=== PATIENT | female | born 1995 | race Caucasian/White ===

== ENCOUNTER 2019-09-10 22:47 | Observation (INO) ==
[2019-09-10] MEDS: D5% in 0.45% NACL 1,000 ML IVC SCH (23:18)
[2019-09-10] MEDS ORDERED: Metoclopramide 10 MG/2 ML VIAL IVP ONE (23:21)
[2019-09-10 23:39] LABS: Basophils # 0.1 K/mcL (0.0-0.2); Basophils % 0.6 %; Eosinophils # 0.1 K/mcL (0.0-0.6); Eosinophils % 0.7 %; Hematocrit 41.7 % (35.3-44.9); Hemoglobin 14.8 g/dL (11.5-15.4); Immature Granulocytes % 0.4 % (0-4); Lymphocytes # 1.7 K/mcL (0.6-4.6); Lymphocytes % 15.3 %; Mean Corpuscular HGB Conc 35.5 g/dL (31.6-35.5); Mean Corpuscular Hemoglobin 30.3 pg (28.0-33.3); Mean Corpuscular Volume 85.3 fL (83.0-100.0); Mean Platelet Volume 8.8 fL (9.4-12.4); Monocytes # 0.7 K/mcL (0.0-1.3); Monocytes % 6.5 %; Neutrophils # 8.2 K/mcL (1.6-8.9); Platelet Count 323 K/mcL (140-400); Red Blood Count 4.89 M/mcL (3.82-4.97); Red Cell Distribution Width 12.1 % (11.5-14.5); Segmented Neutrophils % 76.5 %; White Blood Count 10.8 K/mcL (4.3-11.1)
[2019-09-10 23:48] LABS: BUN/Creatinine Ratio 13 (6-26); Blood Urea Nitrogen 7 mg/dL (6-20); Calcium 9.9 mg/dL (8.6-10.3); Carbon Dioxide 20 mEq/L (23-29); Chloride 102 mEq/L (98-107); Glucose 85 mg/dL (70-105); Osmolality,Calculated 275 (280-300); Potassium 3.1 mEq/L (3.5-5.1); Sodium 134 mEq/L (136-145); eGFR For African Americans > 60 (> 60); eGFR For Non-African Americans > 60 (> 60)
[2019-09-11 00:55] LABS: Bilirubin,Urine Small (Negative); Blood,Urine Negative (Negative); Clarity,Urine Cloudy (Clear); Color,Urine Dark Yellow (Yellow); Glucose,Urine (UA) Normal (Normal); Ketones,Urine >=160 mg/dL (Negative); Leukocyte Esterase,Urine Small (Negative); Nitrite,Urine Negative (Negative); Protein,Urine 30 mg/dL (Neg-Trace); Specific Gravity,Urine > 1.030 (1.010-1.025); Urobilinogen,Urine Normal (Normal)
[2019-09-11 00:59] LABS: Bacteria,Urine Few per hpf (None-Few); Hyaline Casts,Urine Moderate per lpf (None-Few); Squamous Epithelial Cell,Urine Many per lpf (None-Few)
[2019-09-11 01:09] LABS: RBC,Urine 0-3 per hpf (0-3)
[2019-09-11] MEDS ORDERED: D5% in 0.45% NACL 1,000 ML IVC SCH (02:00)
[2019-09-11] MEDS ORDERED: Naloxone 0.4 MG/ML INJ IVP PRN (02:51)
[2019-09-11 03:29] LABS: Amphetamine Screen,Urine Negative ng/mL (Cutoff=1000); Barbiturate Screen,Urine Negative ng/mL (Cutoff=200); Benzodiazepines Screen,Urine Negative ng/mL (Cutoff=200); Cannabinoid Screen,Urine Negative ng/mL (Cutoff = 50); Cocaine Screen,Urine Negative ng/mL (Cutoff= 300); Opiate Screen,Urine Negative ng/mL (Cutoff=300); Phencyclidine Screen,Urine Negative ng/mL (Cutoff=25)
[2019-09-11] MEDS: 0.9 % Sodium Chloride 1,000 ML IVC SCH ×2 (04:06→11:20)
[2019-09-11 05:49] LABS: Basophils % 0.4 %; Eosinophils # 0.1 K/mcL (0.0-0.6); Eosinophils % 0.6 %; Hematocrit 36.4 % (35.3-44.9); Immature Granulocytes % 0.3 % (0-4); Lymphocytes # 1.4 K/mcL (0.6-4.6); Lymphocytes % 17.9 %; Mean Corpuscular HGB Conc 34.9 g/dL (31.6-35.5); Mean Corpuscular Hemoglobin 30.1 pg (28.0-33.3); Mean Corpuscular Volume 86.3 fL (83.0-100.0); Mean Platelet Volume 8.8 fL (9.4-12.4); Monocytes # 0.7 K/mcL (0.0-1.3); Monocytes % 9.3 %; Neutrophils # 5.7 K/mcL (1.6-8.9); Platelet Count 287 K/mcL (140-400); Red Blood Count 4.22 M/mcL (3.82-4.97); Segmented Neutrophils % 71.5 %
[2019-09-11 06:00] LABS: Hemoglobin 12.7 g/dL (11.5-15.4)
[2019-09-11] MEDS: Metoclopramide 10 MG/2 ML VIAL IVP SCH ×3 (06:08→17:38)
[2019-09-11 06:29] LABS: Alanine Aminotransferase 39 Units/L (7-52); Albumin 3.8 g/dL (3.5-5.7); Albumin/Globulin Ratio 1.4 (1.1-2.2); Alkaline Phosphatase 43 Units/L (34-104); Aspartate Amino Transferase 17 Units/L (13-39); BUN/Creatinine Ratio 9 (6-26); Bilirubin,Total 0.5 mg/dL (0.3-1.0); Blood Urea Nitrogen 4 mg/dL (6-20); Calcium 8.8 mg/dL (8.6-10.3); Carbon Dioxide 22 mEq/L (23-29); Chloride 104 mEq/L (98-107); Globulin 2.8 g/dL (2.4-3.5); Glucose 109 mg/dL (70-105); Osmolality,Calculated 275 (280-300); Phosphorous 2.8 mg/dL (2.7-4.5); Potassium 3.2 mEq/L (3.5-5.1); Sodium 134 mEq/L (136-145); Total Protein 6.6 g/dL (6.4-8.9); eGFR For African Americans > 60 (> 60); eGFR For Non-African Americans > 60 (> 60)
[2019-09-11] MEDS: D5% in 0.45% NACL 1,000 ML IVC SCH ×5 (08:48→10:05)
[2019-09-11 13:50] LABS: BUN/Creatinine Ratio 7 (6-26); Blood Urea Nitrogen 3 mg/dL (6-20); Calcium 8.5 mg/dL (8.6-10.3); Carbon Dioxide 22 mEq/L (23-29); Chloride 106 mEq/L (98-107); Glucose 75 mg/dL (70-105); Osmolality,Calculated 277 (280-300); Sodium 136 mEq/L (136-145); eGFR For African Americans > 60 (> 60); eGFR For Non-African Americans > 60 (> 60)
[2019-09-11 18:44] VITALS: BP 109/70
[2019-09-11] MEDS ORDERED: 0.9 % Sodium Chloride 1,000 ML IVC SCH (20:30)
[2019-09-11] MEDS ORDERED: POTASSIUM CHLORIDE IVC SCH (20:45)
[2019-09-11] MEDS ORDERED: PYRIDOXINE IVC SCH (20:45)
[2019-09-11] MEDS ORDERED: [UNRECOGNIZED DRUG - OTHER] IVC SCH (20:45)
[2019-09-11] MEDS ORDERED: DIPHENHYDRAMINE IVC SCH (20:45)
[2019-09-11] MEDS ORDERED: D5 IVC SCH (20:45)
[2019-09-11 22:12] LABS: BUN/Creatinine Ratio 5 (6-26); Blood Urea Nitrogen 2 mg/dL (6-20); Carbon Dioxide 17 mEq/L (23-29); Chloride 108 mEq/L (98-107); Glucose 67 mg/dL (70-105); Osmolality,Calculated 266 (280-300); Potassium 3.5 mEq/L (3.5-5.1); Sodium 131 mEq/L (136-145); eGFR For African Americans > 60 (> 60); eGFR For Non-African Americans > 60 (> 60)
[2019-09-12] MEDS ORDERED: Metoclopramide 10 MG/2 ML VIAL IVP SCH
== END 2019-09-11 22:55 | disposition left against medical advice (07) ==
LOC: EMEROOARM 22:47 → 3BNU 22:47
PROVIDERS: ADMIT Internal Medicine; ATTEND Internal Medicine

== ENCOUNTER 2019-09-15 13:56 | Inpatient (IN) ==
[~2019-09-15 13:56] MED LIST: D5 IVPB ONE; LACTATED RINGERS IVPB ONE; PYRIDOXINE IVPB ONE
[2019-09-15] MEDS ORDERED: Ringers Solution, Lactated 1,000 ML IVC ONE (14:26)
[2019-09-15] MEDS: Ondansetron 4 MG/2 ML VIAL IVP PRN (16:16)
[2019-09-15 17:07] LABS: Basophils % 0.6 %; Eosinophils % 0.7 %; Immature Granulocytes % 0.3 % (0-4); Red Blood Count 4.55 M/mcL (3.82-4.97); Red Cell Distribution Width 12.5 % (11.5-14.5)
[2019-09-15 17:09] LABS: Eosinophils # 0.1 K/mcL (0.0-0.6); Hematocrit 39.3 % (35.3-44.9); Hemoglobin 13.6 g/dL (11.5-15.4); Immature Platelets 3.5 % (1.1-6.1); Lymphocytes % 14.2 %; Mean Corpuscular HGB Conc 34.6 g/dL (31.6-35.5); Mean Corpuscular Hemoglobin 29.9 pg (28.0-33.3); Mean Corpuscular Volume 86.4 fL (83.0-100.0); Mean Platelet Volume 9.5 fL (9.4-12.4); Monocytes # 0.6 K/mcL (0.0-1.3); Monocytes % 8.2 %
[2019-09-15 17:20] LABS: Alanine Aminotransferase 77 Units/L (7-52); Albumin/Globulin Ratio 1.3 (1.1-2.2); Alkaline Phosphatase 55 Units/L (34-104); Amylase 50 Units/L (29-103); Aspartate Amino Transferase 38 Units/L (13-39); BUN/Creatinine Ratio 10 (6-26); Bilirubin,Direct 0.4 mg/dL (0.0-0.2); Bilirubin,Indirect 0.6 mg/dL (0.0-1.0); Blood Urea Nitrogen 4 mg/dL (6-20); Calcium 9.1 mg/dL (8.6-10.3); Carbon Dioxide 17 mEq/L (23-29); Chloride 104 mEq/L (98-107); Globulin 3.1 g/dL (2.4-3.5); Glucose 72 mg/dL (70-105); Lipase 35 Units/L (11-82); Osmolality,Calculated 273 (280-300); Potassium 3.3 mEq/L (3.5-5.1); Sodium 134 mEq/L (136-145); Total Protein 7.1 g/dL (6.4-8.9); eGFR For African Americans > 60 (> 60); eGFR For Non-African Americans > 60 (> 60)
[2019-09-15] MEDS: D5% in Lactated Ringers 1,000 ML IVC SCH (17:23)
[2019-09-15 17:30] LABS: Neutrophils # 5.3 K/mcL (1.6-8.9)
[2019-09-15 17:31] LABS: Platelet Count 288 K/mcL (140-400)
[2019-09-15] MEDS ORDERED: Metoclopramide 10 MG/2 ML VIAL IVP PRN (19:26)
[2019-09-15] MEDS ORDERED: D5 IVPB ONE (19:30)
[2019-09-15] MEDS ORDERED: POTASSIUM CHLORIDE IVPB ONE (19:30)
[2019-09-15] MEDS ORDERED: PROMETHAZINE IVPB ONE (19:30)
[2019-09-15] MEDS ORDERED: LACTATED RINGERS IVPB ONE (19:30)
[2019-09-16] MEDS ORDERED: PYRIDOXINE IVPB ONE ×2 (03:30→23:45)
[2019-09-16] MEDS ORDERED: D5 IVPB ONE ×3 (03:30→23:45)
[2019-09-16] MEDS ORDERED: LACTATED RINGERS IVPB ONE ×3 (03:30→23:45)
[2019-09-16] MEDS: Pantoprazole 40 MG VIAL IVP SCH ×2 (06:09→20:44)
[2019-09-16 07:54] LABS: BUN/Creatinine Ratio 5 (6-26); Blood Urea Nitrogen 2 mg/dL (6-20); Calcium 8.5 mg/dL (8.6-10.3); Carbon Dioxide 23 mEq/L (23-29); Chloride 105 mEq/L (98-107); Glucose 113 mg/dL (70-105); Osmolality,Calculated 275 (280-300); Potassium 2.8 mEq/L (3.5-5.1); Sodium 134 mEq/L (136-145); eGFR For African Americans > 60 (> 60); eGFR For Non-African Americans > 60 (> 60)
[2019-09-16] MEDS ORDERED: 0.9 % Sodium Chloride 500 ML ONE (09:59)
[2019-09-16] MEDS: Ondansetron 4 MG/2 ML VIAL IVP PRN ×2 (12:48→20:44)
[2019-09-16] MEDS: VITAMIN K IVC SCH ×2 (18:11→20:37)
[2019-09-16] MEDS: MVI IVC SCH ×2 (18:11→20:37)
[2019-09-16] MEDS: LACTATED RINGERS IVC SCH ×2 (18:11→20:37)
[2019-09-16] MEDS: D5 IVC SCH ×2 (18:11→20:37)
[2019-09-16] MEDS: D5% in Lactated Ringers 1,000 ML IVC SCH ×2 (20:36→23:24)
[2019-09-16 21:44] LABS: BUN/Creatinine Ratio 4 (6-26); Blood Urea Nitrogen 2 mg/dL (6-20); Calcium 8.8 mg/dL (8.6-10.3); Carbon Dioxide 26 mEq/L (23-29); Chloride 103 mEq/L (98-107); Glucose 100 mg/dL (70-105); Osmolality,Calculated 274 (280-300); Potassium 2.8 mEq/L (3.5-5.1); Sodium 134 mEq/L (136-145); eGFR For African Americans > 60 (> 60); eGFR For Non-African Americans > 60 (> 60)
[2019-09-16] MEDS ORDERED: 0.9 % Sodium Chloride w KCl 40 MEQ/1,000 ML MLS IVC SCH ×2 (23:45)
[2019-09-16] MEDS ORDERED: MVI IVC SCH (23:45)
[2019-09-16] MEDS ORDERED: PROMETHAZINE IVPB ONE (23:45)
[2019-09-16] MEDS ORDERED: D5 IVC SCH (23:45)
[2019-09-16] MEDS ORDERED: LACTATED RINGERS IVC SCH (23:45)
[2019-09-16] MEDS ORDERED: VITAMIN K IVC SCH (23:45)
[2019-09-17] MEDS ORDERED: LACTATED RINGERS IVPB ONE (03:00)
[2019-09-17] MEDS ORDERED: PYRIDOXINE IVPB ONE (03:00)
[2019-09-17] MEDS ORDERED: D5 IVPB ONE (03:00)
[2019-09-17] MEDS: Pantoprazole 40 MG VIAL IVP SCH ×2 (05:42→18:19)
[2019-09-17 14:59] LABS: White Blood Count 4.5 K/mcL (4.3-11.1)
[2019-09-17 15:00] LABS: Basophils % 0.7 %; Eosinophils # 0.1 K/mcL (0.0-0.6); Eosinophils % 2.7 %; Hematocrit 35.1 % (35.3-44.9); Immature Granulocytes % 0.2 % (0-4); Lymphocytes # 1.1 K/mcL (0.6-4.6); Lymphocytes % 24.8 %; Mean Corpuscular HGB Conc 33.9 g/dL (31.6-35.5); Mean Corpuscular Hemoglobin 29.7 pg (28.0-33.3); Mean Corpuscular Volume 87.5 fL (83.0-100.0); Mean Platelet Volume 9.1 fL (9.4-12.4); Monocytes # 0.5 K/mcL (0.0-1.3); Monocytes % 11.5 %; Neutrophils # 2.7 K/mcL (1.6-8.9); Platelet Count 240 K/mcL (140-400); Red Blood Count 4.01 M/mcL (3.82-4.97); Red Cell Distribution Width 12.4 % (11.5-14.5); Segmented Neutrophils % 60.1 %
[2019-09-17 15:05] LABS: Hemoglobin 11.9 g/dL (11.5-15.4)
[2019-09-17 15:19] LABS: BUN/Creatinine Ratio 7 (6-26); Blood Urea Nitrogen 3 mg/dL (6-20); Calcium 8.6 mg/dL (8.6-10.3); Carbon Dioxide 23 mEq/L (23-29); Chloride 107 mEq/L (98-107); Glucose 110 mg/dL (70-105); Osmolality,Calculated 277 (280-300); Potassium 3.4 mEq/L (3.5-5.1); Sodium 135 mEq/L (136-145); eGFR For African Americans > 60 (> 60); eGFR For Non-African Americans > 60 (> 60)
[2019-09-17] MEDS: D5% in Lactated Ringers 1,000 ML IVC SCH (18:47)
[2019-09-18] MEDS: D5% in Lactated Ringers 1,000 ML IVC SCH ×2 (01:23→08:21)
[2019-09-18] MEDS: Pantoprazole 40 MG VIAL IVP SCH (05:18)
[2019-09-18 07:27] LABS: BUN/Creatinine Ratio 8 (6-26); Blood Urea Nitrogen 3 mg/dL (6-20); Calcium 8.6 mg/dL (8.6-10.3); Carbon Dioxide 25 mEq/L (23-29); Chloride 105 mEq/L (98-107); Glucose 104 mg/dL (70-105); Osmolality,Calculated 277 (280-300); Potassium 3.4 mEq/L (3.5-5.1); Sodium 135 mEq/L (136-145); eGFR For African Americans > 60 (> 60); eGFR For Non-African Americans > 60 (> 60)
[2019-09-18] MEDS ORDERED: D5 IVPB ONE (08:15)
[2019-09-18] MEDS ORDERED: PROMETHAZINE IVPB ONE (08:15)
[2019-09-18] MEDS ORDERED: LACTATED RINGERS IVPB ONE (08:15)
[2019-09-18] MEDS: Ondansetron 4 MG/2 ML VIAL IVP PRN ×2 (08:20→16:26)
[2019-09-18 13:14] VITALS: BP 89/53
== END 2019-09-18 16:30 | disposition home or self-care (01) | DRG 566 ==
LOC: 1NENUOBS
PROVIDERS: ADMIT Obstetrics & Gynecology; ATTEND Obstetrics & Gynecology

== ENCOUNTER → 2019-10-25 01:00 | Observation (INO) ==
[2019-10-24 16:28] LABS: Basophils % 0.3 %; Eosinophils % 0.4 %; Hematocrit 40.7 % (35.3-44.9); Hemoglobin 13.7 g/dL (11.5-15.4); Immature Granulocytes % 0.8 % (0-4); Lymphocytes # 1.4 K/mcL (0.6-4.6); Lymphocytes % 12.9 %; Mean Corpuscular HGB Conc 33.7 g/dL (31.6-35.5); Mean Corpuscular Hemoglobin 29.6 pg (28.0-33.3); Mean Corpuscular Volume 87.9 fL (83.0-100.0); Mean Platelet Volume 8.8 fL (9.4-12.4); Monocytes # 0.9 K/mcL (0.0-1.3); Monocytes % 8.6 %; Neutrophils # 8.4 K/mcL (1.6-8.9); Platelet Count 321 K/mcL (140-400); Red Blood Count 4.63 M/mcL (3.82-4.97); Red Cell Distribution Width 13.1 % (11.5-14.5); White Blood Count 10.9 K/mcL (4.3-11.1)
[2019-10-24 16:53] LABS: Amylase 36 Units/L (29-103); BUN/Creatinine Ratio 17 (6-26); Blood Urea Nitrogen 8 mg/dL (6-20); Calcium 10.3 mg/dL (8.6-10.3); Carbon Dioxide 21 mEq/L (23-29); Chloride 101 mEq/L (98-107); Glucose 78 mg/dL (70-105); Lipase 9 Units/L (11-82); Osmolality,Calculated 275 (280-300); Potassium 3.8 mEq/L (3.5-5.1); Sodium 134 mEq/L (136-145); eGFR For African Americans > 60 (> 60); eGFR For Non-African Americans > 60 (> 60)
[2019-10-24 20:22] LABS: Bilirubin,Urine Moderate (Negative); Blood,Urine Negative (Negative); Clarity,Urine Cloudy (Clear); Color,Urine Dark Yellow (Yellow); Glucose,Urine (UA) Normal (Normal); Ketones,Urine 80 mg/dL (Negative); Leukocyte Esterase,Urine Moderate (Negative); Nitrite,Urine Negative (Negative); Protein,Urine Trace mg/dL (Neg-Trace); Specific Gravity,Urine 1.022 (1.010-1.025)
[2019-10-24 20:25] LABS: Bacteria,Urine None Seen per hpf (None-Few); Hyaline Casts,Urine None Seen per lpf (None-Few); Squamous Epithelial Cell,Urine Many per lpf (None-Few)
[2019-10-24 20:34] LABS: Renal Epithelial Cells,Urine Few per hpf (None-Few)
[2019-10-24 20:35] LABS: RBC,Urine 0-3 per hpf (0-3)
[~2019-10-25 01:00] MED LIST changes: +*HR* Promethazine 25 MG/ML VIAL IVP ONE; -D5 IVPB ONE; -LACTATED RINGERS IVPB ONE; +Ondansetron 4 MG/2 ML VIAL IVP ONE; -PYRIDOXINE IVPB ONE; +Ringers Solution, Lactated 1,000 ML IVC SCH; +Ringers Solution, Lactated 2,000 ML ONE
== END | disposition home or self-care (01) ==
LOC: 1NENULAB
PROVIDERS: ADMIT Obstetrics & Gynecology; ATTEND Obstetrics & Gynecology

== ENCOUNTER 2020-04-13 08:00 | Inpatient (IN) ==
[2020-04-13] MEDS ORDERED: miSOPROStoL 25 MCG TABLET PO PRN (09:26)
[2020-04-13] MEDS ORDERED: *HR* FentaNYL (PF) 100 MCG/2 ML VIAL IVP PRN (09:26)
[2020-04-13] MEDS ORDERED: Ondansetron 4 MG/2 ML VIAL IVP PRN (09:26)
[2020-04-13] MEDS ORDERED: Metoclopramide 10 MG/2 ML VIAL IVP PRN (09:26)
[2020-04-13] MEDS ORDERED: Famotidine 20 MG/2 ML VIAL IVP PRN (09:26)
[2020-04-13] MEDS ORDERED: Naloxone 0.4 MG/ML INJ IVP PRN (09:26)
[2020-04-13] MEDS ORDERED: Ringers Solution, Lactated 1,000 ML IVC SCH (09:30)
[2020-04-13 10:17] LABS: Basophils % 0.3 %; Eosinophils # 0.1 K/mcL (0.0-0.6); Eosinophils % 0.8 %; Hematocrit 29.1 % (35.3-44.9); Hemoglobin 9.2 g/dL (11.5-15.4); Lymphocytes # 1.4 K/mcL (0.6-4.6); Lymphocytes % 14.1 %; Mean Corpuscular HGB Conc 31.6 g/dL (31.6-35.5); Mean Corpuscular Hemoglobin 25.7 pg (28.0-33.3); Mean Corpuscular Volume 81.3 fL (83.0-100.0); Mean Platelet Volume 8.9 fL (9.4-12.4); Monocytes # 0.8 K/mcL (0.0-1.3); Monocytes % 8.2 %; Neutrophils # 7.2 K/mcL (1.6-8.9); Platelet Count 230 K/mcL (140-400); Red Blood Count 3.58 M/mcL (3.82-4.97); Red Cell Distribution Width 14.9 % (11.5-14.5); Segmented Neutrophils % 74.6 %; White Blood Count 9.6 K/mcL (4.3-11.1)
[2020-04-13 10:34] LABS: Amphetamine Screen,Urine Negative ng/mL (Cutoff=1000); Barbiturate Screen,Urine Negative ng/mL (Cutoff=200); Benzodiazepines Screen,Urine Negative ng/mL (Cutoff=200); Cannabinoid Screen,Urine Negative ng/mL (Cutoff = 50); Cocaine Screen,Urine Negative ng/mL (Cutoff= 300); Opiate Screen,Urine Negative ng/mL (Cutoff=300); Phencyclidine Screen,Urine Negative ng/mL (Cutoff=25)
[2020-04-13] MEDS ORDERED: EPHEDrine 50 MG/ML VIAL IVP PRN (11:44)
[2020-04-13] MEDS ORDERED: *HR* FentaNYL (PF) 100 MCG/2 ML VIAL ONE (18:20)
[2020-04-13] MEDS ORDERED: Ropivacaine/PF 0.2% 20 ML VIAL ONE (18:20)
[2020-04-13] MEDS: Epidural Premix (fent/bupiv) 110 ML EP SCH (18:44)
[2020-04-13] MEDS ORDERED: Famotidine 20 MG/2 ML VIAL IVP ONE (19:50)
[2020-04-13] MEDS ORDERED: Oxytocin 20 units/ LR 1000 mL 20 UNIT/1,000 ML BAG IVC SCH (20:00)
[2020-04-14] MEDS: Epidural Premix (fent/bupiv) 110 ML EP SCH (03:03)
[2020-04-14] MEDS ORDERED: Rho Immune Globulin 1,500 UNIT SYRINGE IM PRN (11:47)
[2020-04-14] MEDS ORDERED: Benzocaine/Menthol 56 GM AEROSOL SPRAY TP PRN (11:47)
[2020-04-14] MEDS ORDERED: Oxytocin 20 units/ LR 1000 mL 20 UNIT/1,000 ML BAG IVC SCH (11:47)
[2020-04-14] MEDS ORDERED: Oxytocin 20 units/ LR 1000 mL 20 UNIT/1,000 ML BAG IVC ONE (11:47)
[2020-04-14] MEDS ORDERED: Measles/Mumps/Rubella Vacc 0.5 ML VIAL SQ PRN (11:47)
[2020-04-14] MEDS: Prenatal Vit/FA 1 EACH TABLET PO SCH (12:44)
[2020-04-14] MEDS: Acetaminophen 325 MG TABLET PO PRN ×2 (12:44→20:41)
[2020-04-15 07:46] LABS: Basophils # 0.1 K/mcL (0.0-0.2); Basophils % 0.5 %; Eosinophils # 0.1 K/mcL (0.0-0.6); Eosinophils % 0.5 %; Hemoglobin 8.1 g/dL (11.5-15.4); Immature Granulocytes % 1.5 % (0-4); Lymphocytes # 1.6 K/mcL (0.6-4.6); Mean Corpuscular HGB Conc 31.2 g/dL (31.6-35.5); Mean Corpuscular Hemoglobin 26.2 pg (28.0-33.3); Mean Corpuscular Volume 84.1 fL (83.0-100.0); Mean Platelet Volume 9.2 fL (9.4-12.4); Monocytes # 1.3 K/mcL (0.0-1.3); Monocytes % 8.5 %; Neutrophils # 12.3 K/mcL (1.6-8.9); Platelet Count 193 K/mcL (140-400); Red Blood Count 3.09 M/mcL (3.82-4.97); Red Cell Distribution Width 14.9 % (11.5-14.5)
[2020-04-15 07:50] LABS: White Blood Count 15.5 K/mcL (4.3-11.1)
[2020-04-15 08:36] VITALS: BP 90/60
[2020-04-15] MEDS: Prenatal Vit/FA 1 EACH TABLET PO SCH (09:42)
[2020-04-15] MEDS ORDERED: *HR* HYDROcodone/Acet 5/325 mg TABLET PO ONE (09:58)
[2020-04-15 10:36] LABS: Basophils # 0.1 K/mcL (0.0-0.2); Basophils % 0.4 %; Eosinophils # 0.1 K/mcL (0.0-0.6); Eosinophils % 0.5 %; Hematocrit 27.1 % (35.3-44.9); Hemoglobin 8.4 g/dL (11.5-15.4); Immature Granulocytes % 1.5 % (0-4); Lymphocytes # 1.4 K/mcL (0.6-4.6); Lymphocytes % 9.1 %; Mean Corpuscular Hemoglobin 25.8 pg (28.0-33.3); Mean Corpuscular Volume 83.4 fL (83.0-100.0); Mean Platelet Volume 8.9 fL (9.4-12.4); Monocytes # 1.3 K/mcL (0.0-1.3); Monocytes % 8.7 %; Neutrophils # 12.1 K/mcL (1.6-8.9); Platelet Count 198 K/mcL (140-400); Red Blood Count 3.25 M/mcL (3.82-4.97); Segmented Neutrophils % 79.8 %; White Blood Count 15.2 K/mcL (4.3-11.1)
[2020-04-15] MEDS ORDERED: *HR* HYDROcodone/Acet 5/325 mg TABLET PO PRN (15:52)
== END 2020-04-15 20:44 | disposition home or self-care (01) | DRG 560 ==
LOC: 1NENULAB 08:10 → 1NENUOBS 04-14 10:56
PROVIDERS: ADMIT Obstetrics & Gynecology; ATTEND Obstetrics & Gynecology